=== PATIENT | female | born 2000 | race African-American/Black ===

== ENCOUNTER 2018-08-06 22:11 | Emergency (ER) | payer MEDICAID ==
[2018-08-06 23:05] LABS: ABSOLUTE BASOPHILS # (AUTO) 0.1 10^3/uL (0.0-0.2); ABSOLUTE EOSINOPHILS # (AUTO) 0.6 10^3/uL (0.0-0.6); ABSOLUTE LYMPHOCYTES (AUTO) 2.9 10^3/uL (0.5-4.7); ABSOLUTE MONOCYTES (AUTO) 0.7 10^3/uL (0.1-1.4); ABSOLUTE NEUT (AUTO) 5.4 10^3/uL (1.7-8.2); BASOPHILS % (AUTO) 0.6 % (0-2); HEMATOCRIT 35.8 % (36.0-47.0); HEMOGLOBIN 12.4 g/dL (12.0-15.5); MEAN CORPUSCULAR HEMOGLOBIN 29.3 pg (27.0-33.4); MEAN CORPUSCULAR HGB CONC 34.8 g/dL (32.0-36.0); MEAN CORPUSCULAR VOLUME 84 fl (80-97); MONOCYTES % (AUTO) 7.7 % (3-13); PLATELET COUNT 295 10^3/uL (150-450); RED BLOOD COUNT 4.24 10^6/uL (3.72-5.28); RED CELL DISTRIBUTION WIDTH 14.4 % (11.5-14.0); SEGMENTED NEUTROPHILS % (AUTO) 55.7 % (42-78); TOTAL CELLS COUNTED % (AUTO) 100 %; WHITE BLOOD COUNT 9.6 10^3/uL (4.0-10.5)
[2018-08-06 23:12] LABS: APPEARANCE,URINE SLIGHTLY-CLOUDY; BILIRUBIN,URINE NEGATIVE (NEGATIVE); COLOR,URINE YELLOW; GLUCOSE, URINE NEGATIVE (NEGATIVE); KETONES,URINE NEGATIVE (NEGATIVE); LEUKOCYTE ESTERASE,URINE NEGATIVE (NEGATIVE); NITRITE,URINE NEGATIVE (NEGATIVE); PROTEIN,URINE NEGATIVE (NEGATIVE); URINE SPECIFIC GRAVITY 1.012; UROBILINOGEN,URINE NEGATIVE mg/dL (<2.0)
[2018-08-06 23:27] LABS: ALANINE AMINOTRANSFERASE 13 U/L (5-35); ALBUMIN 4.4 g/dL (3.7-5.6); ALKALINE PHOSPHATASE 81 U/L (50-135); ANION GAP 8 (5-19); ASPARTATE AMINO TRANSFERASE 24 U/L (5-30); BILIRUBIN,DIRECT 0.2 mg/dL (0.0-0.4); BILIRUBIN,TOTAL 0.3 mg/dL (0.2-1.3); BLOOD UREA NITROGEN 7 mg/dL (7-20); CARBON DIOXIDE 24 mmol/L (22-30); CHLORIDE 107 mmol/L (98-107); GLUCOSE 89 mg/dL (75-110); POTASSIUM 3.6 mmol/L (3.6-5.0); SODIUM 139.2 mmol/L (137-145); TOTAL PROTEIN 7.4 g/dL (6.3-8.2)
--- NOTE | 2018-08-07 01:17 | RADIOLOGY REPORT (SQ) ---
US PELVIS HISTORY: Early . Pelvic pain. COMPARISON: None. TECHNIQUE: Grayscale, color Doppler, and spectral Doppler ultrasound images of the pelvis were obtained. FINDINGS: There is an intrauterine gestational sac with a yolk sac and pole visualized. The gestational sac has a normal contour. The crown-rump length measures 1.64 cm, corresponding to 8 weeks 0 days. heart rate is 157 bpm. There is a heterogeneous area adjacent to the gestational sac measuring 1.8 x 1.5 cm likely representing a subchorionic hemorrhage The cervix is closed and measures 3.1 cm in length. The right ovary measures 3.3 x 1.9 x 1.7 cm, and the left ovary measures 4.1 x 2.6 x 2.6 cm and contains a dominant 2.1 x 1.7 cm anechoic cyst. Normal color Doppler blood flow is seen in both ovaries. IMPRESSION: 1. Single live IUP with estimated gestational age 8 weeks 0 days. 2. Small 1.8 cm subchorionic hemorrhage; attention on follow-up is suggested.
--- NOTE | 2018-08-07 01:34 | ER Document Report ---
ED General - General Chief Complaint: Abdominal Pain Stated Complaint: ABDOMINAL PAIN Time Seen by Provider: 08/06/18 22:47 Primary Care Provider: YARON SHANKAR MD [Primary Care Provider] - Follow up as needed Notes: Patient is a 17-year-old at approximately 8 weeks gestation by LMP who presents complaining of 6-8 weeks of lower abdominal cramping, nausea and discomfort to her left shoulder. Abdominal cramping is described as mild, intermittent, unchanged since initial onset. Patient states that symptoms have been relatively constant since onset over the last several weeks. Nothing seems to improve or worsen her symptoms. Is uncertain of whether or not she has had similar symptoms during her previous which did and and a miscarriage. Patient has not yet established. Care for this . She denies vaginal bleeding or vaginal discharge. TRAVEL OUTSIDE OF THE [place] IN LAST 30 DAYS: No - Related Data Allergies/Adverse Reactions: No Known Allergies Allergy (Verified 08/06/18 22:44) Past Medical History - General Information source: Patient - Social History Smoking Status: Never Smoker Frequency of alcohol use: None Drug Abuse: None Lives with: Parents Family History: Reviewed & Not Pertinent Patient has suicidal ideation: No Patient has homicidal ideation: No Renal/ Medical History: Denies: Hx Peritoneal Dialysis Review of Systems - Review of Systems Notes: Constitutional: Negative for fever. HENT: Negative for sore throat. Eyes: Negative for visual changes. Cardiovascular: Negative for chest pain. Respiratory: Negative for shortness of breath. Gastrointestinal: Positive for lower abdominal cramping Genitourinary: Negative for dysuria. Musculoskeletal: Negative for back pain. Skin: Negative for rash. Neurological: Negative for headaches, weakness or numbness. 10 point ROS negative except as marked above and in HPI. Physical Exam - Vital signs Vitals: Pulse 82 08/06/18 22:14 Interpretation: Normal Notes: PHYSICAL EXAMINATION: GENERAL: Well-appearing, well-nourished and in no acute distress. HEAD: Atraumatic, normocephalic. EYES: Pupils equal round and reactive to light, extraocular movements intact, s clera anicteric, conjunctiva are normal. ENT: nares patent, oropharynx clear without exudates. Moist mucous membranes. NECK: Normal range of motion, supple without lymphadenopathy LUNGS: Breath sounds clear to auscultation bilaterally and equal. No wheezes rales or rhonchi. HEART: Regular rate and rhythm without murmurs ABDOMEN: Soft, nontender, normoactive bowel sounds. No guarding, no rebound. No masses appreciated. EXTREMITIES: Normal range of motion, no pitting or edema. No cyanosis. NEUROLOGICAL: No focal neurological deficits. Moves all extremities spontaneously and on command. PSYCH: Normal mood, normal affect. SKIN: Warm, Dry, normal turgor, no rashes or lesions noted. Course - Re-evaluation Re-evalutation: 08/07/18 01:29 Patient is currently and presenting with lower abdominal pain. No va ginal bleeding or discharge. Ultrasound does reveal a week intrauterine with associated subchorionic hemorrhage. Patient denies any dysuria and urinalysis is not consistent with an acute urinary tract infection. The patient does not have any focal right lower quadrant tenderness, rebound or guarding to suggest acute appendicitis. No right upper quadrant tenderness to suggest cholestasis of or an acute cholecystitis. Patient has tolerated oral intake here in the emergency department without difficulty. Vitals are within normal limits. At this time will discharge with return precautions and follow-up recommendations. Verbal discharge instructions given a the bedside and opportunity for questions given. Medication warnings reviewed. Patient is in agreement with this plan and has verbalized understanding of return precautions and the need for primary care follow-up in the next 24-72 hours. - Vital Signs Vital signs: Temp Pulse Resp BP Pulse Ox 98.8 F 82 20 126/68 H 100 08/06/18 22:22 08/06/18 22:22 08/06/18 22:22 08/06/18 22:22 08/06/18 22:22 - Laboratory Result Diagrams: 08/06/18 22:41 08/06/18 22:41 Laboratory results interpreted by me: 08/06/18 08/06/18 08/06/18 22:41 22:41 22:41 Hct 35.8 L RDW 14.4 H Beta HCG, Quant 325818.00 H Urine HCG, Qual POSITIVE H - Diagnostic Test Radiology reviewed: Reports reviewed - EKG Interpretation by Me Additional EKG results interpreted by me: 08/07/18 01:35 Sinus rhythm, rate 67. No ST elevations or depressions. QTC is 376. Discharge - Discharge Clinical Impression: First trimester , related abdominal pain of lower quadrant, antepartum Condition: Good Disposition: HOME, SELF-CARE Additional Instructions: You were seen for abdominal pain during . Your ultrasound and labs are normal today. The exact cause your pain is uncertain but is likely related to your developing baby. Please follow-up with your MASTIC FLOOR LAYER in the next 24-48 hours. Return to the emergency department immediately if you have worsening of your pain, have persistent vomiting, develop a fever of greater than 100.4F, begin to have vaginal bleeding, or any other symptoms that are worrisome to you. Referrals: YARON SHANKAR MD [Primary Care Provider] - Follow up as needed LATONYA ASKEW MD [ACTIVE STAFF] - Follow up as needed
[2018-08-07 02:10] VITALS: BP 113/62
--- NOTE | 2018-08-07 22:54 | EKG REPORT ---
SEVERITY:- NORMAL ECG - SINUS RHYTHM : Confirmed by: Sekou Sweeney 07-Aug-2018 22:53:38
== END 2018-08-07 02:10 | disposition home or self-care (01) ==
LOC: ER 22:11
DX: O26.891 Other specified pregnancy related conditions, first trimester (principal); R10.30 Lower abdominal pain, unspecified; R11.0 Nausea; O20.8 Other hemorrhage in early pregnancy; Z3A.00 Weeks of gestation of pregnancy not specified; Z87.59 Personal history of other complications of pregnancy, childbirth and the puerperium
CPT/HCPCS: 36415; 76817; 80053; 81001; 81025; 84702; 85025; 93005; 93010; 99284

== ENCOUNTER 2020-04-04 10:03 | Emergency (ER) | payer MEDICAID ==
[2020-04-04 10:10] VITALS: BP 111/67
[2020-04-04] MEDS ORDERED: NAPROXEN 250 MG TABLET PO ONE (10:24)
--- NOTE | 2020-04-04 10:35 | ER Document Report ---
HPI - HPI Patient complains to provider of: wrist pain Time Seen by Provider: 04/04/20 10:20 Pain Level: 4 Notes: 19-year-old female to the emergency department with complaints of right wrist pain that is been ongoing for some time but significantly worse in the past 2 days. 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 She is using a "Wizard knife". She states she flex her wrist from about 11 PM to 8 AM cutting the meat. She states it hurts in the back of the wrist and along the thumb. She denies any elier injury. She is right-hand dominant. She denies any numbness and tingling. She has been taking Tylenol and BC powders without a lot of relief. - ROS Systems Reviewed and Negative: Yes All other systems reviewed and negative - CONSTITUTIONAL Constitutional: DENIES: Fever, Chills - EENT EENT: DENIES: Sore Throat, Ear Pain, Congestion - NEURO Neurology: DENIES: Headache - CARDIOVASCULAR Cardiovascular: DENIES: Chest pain - RESPIRATORY Respiratory: DENIES: Trouble Breathing, Coughing - GASTROINTESTINAL Gastrointestinal: DENIES: Abdominal Pain, Nausea, Patient vomiting, Diarrhea - MUSCULOSKELETAL Musculoskeletal: REPORTS: Extremity pain Notes: Right wrist pain - DERM Skin Color: Normal Skin Problems: None Past Medical History - General Information source: Patient - Social History Smoking Status: Never Smoker Chew tobacco use (# tins/day): No Frequency of alcohol use: Occasional Drug Abuse: Marijuana Family History: Reviewed & Not Pertinent Patient has homicidal ideation: No Renal/ Medical History: Denies: Hx Peritoneal Dialysis Vertical Provider Document - CONSTITUTIONAL Agree With Documented VS: Yes Exam Limitations: No Limitations General Appearance: WD/WN, No Apparent Distress - INFECTION CONTROL TRAVEL OUTSIDE OF THE [place] IN LAST 30 DAYS: No - HEENT HEENT: Atraumatic, Normocephalic, PERRLA - NECK Neck: Normal Inspection, Supple - RESPIRATORY Respiratory: Breath Sounds Normal, No Respiratory Distress. negative: Rales, Rhonchi, Wheezing - CARDIOVASCULAR Cardiovascular: Regular Rate, Regular Rhythm, No Murmur - GI/ABDOMEN Gastrointestinal: Abdomen Soft, Abdomen Non-Tender, No Organomegaly - MUSCULOSKELETAL/EXTREMETIES Notes: There is tenderness to palpation over the dorsal aspect of the right wrist and up onto the dorsal aspect of the thumb. Patient also reports a little bit of tenderness to palpation over the thenar eminence. She has a positive Thao test. She has negative Phalen's and Tinel's. Mainly however her pain is mostly elicited with extension of the wrist. She has about a 4 out of 5 and right hand mobile designer due to pain. Radial pulses are intact and equal. There is no erythema or edema. There is no warmth of the skin. There is no streaking redness. Cap refill is less than 2 seconds. All fingers with 5 out of 5 strength against resistance in testing of both flexor tendons as well as extensor tendons. - NEURO Level of Consciousness: Awake, Alert, Appropriate Motor/Sensory: No Motor Deficit, No Sensory Deficit - DERM Integumentary: Warm, Dry, No Rash Course - Re-evaluation Re-evalutation: 04/04/20 11:09 Impression: Right wrist pain. This is likely a tendinitis from overuse. X-ray is negative for any acute bony injury. Will place in a Velcro wrist splint and have her follow-up with orthopedist. Encouraged rest and ice for the next several days. Will send home with NSAIDs as well as a Medrol Dosepak. Patient agrees with the plan. Encouraged to return if any worsening symptoms. - Vital Signs Vital signs: Temp Pulse Resp BP Pulse Ox 98.2 F 69 16 111/67 100 04/04/20 10:17 04/04/20 10:09 04/04/20 10:09 04/04/20 10:09 04/04/20 10:09 Discharge - Discharge Clinical Impression: Right wrist pain, Tendonitis, Overuse injury Condition: Stable Disposition: HOME, SELF-CARE Instructions: Overuse Syndrome ([facility]), Tendonitis ([facility]) Additional Instructions: Wear splint without fail. Rest and ice the wrist. Take medicines as prescribed. Follow up with orthopedist. REturn if worsening symptoms. Prescriptions: Methylprednisolone [Medrol Dosepack (4 mg/Tab) 21 Tab/Dosepak] 4 mg PO ASDIR PRN #21 tab.ds.pk PRN Reason: Naproxen [Naprosyn 250 mg Tablet] 500 mg PO BID #30 tablet Forms: Return to Work Referrals: YARON SHANKAR MD [Primary Care Provider] - Follow up as needed SANDER DELUNA JR, DO [ACTIVE PROVISIONAL STAFF] - Follow up in 1 week (for orthopedic follow up)
--- NOTE | 2020-04-04 11:01 | RADIOLOGY REPORT (SQ) ---
EXAM DESCRIPTION: WRIST RIGHT 3 VIEWS IMAGES COMPLETED DATE/TIME: 04/04/2020 10:52 am REASON FOR STUDY: wrist pain COMPARISON: None. NUMBER OF VIEWS: Three views. TECHNIQUE: AP, lateral, and oblique radiographic images acquired of the right wrist. LIMITATIONS: None. FINDINGS: MINERALIZATION: Normal. BONES: No acute fracture or dislocation. No worrisome bone lesions. Normal alignment. SOFT TISSUES: No soft tissue swelling. No foreign body. OTHER: No other significant finding. IMPRESSION: NEGATIVE STUDY OF THE RIGHT WRIST. NO RADIOGRAPHIC EVIDENCE OF ACUTE INJURY. TECHNICAL DOCUMENTATION: JOB ID: [id number] 2010 [employer]- All Rights Reserved Reading location - IP/workstation name: [email or web address]
== END 2020-04-04 11:23 | disposition home or self-care (01) ==
LOC: ER 10:03
DX: M77.8 Other enthesopathies, not elsewhere classified (principal); M70.831 Other soft tissue disorders related to use, overuse and pressure, right forearm; M25.531 Pain in right wrist; Y93.89 Activity, other specified
CPT/HCPCS: 99283; 73110; J3490

== ENCOUNTER 2020-06-10 17:02 | Emergency (ER) | payer OTHER, MEDICAID ==
[2020-06-10 17:21] VITALS: BP 93/43
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
[2020-06-10] MEDS ORDERED: TETRACAINE HCL 0.5% OPH SOLN 4 ML OD PRN (17:52)
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
[2020-06-10] MEDS ORDERED: TETRACAINE HCL 0.5% OPH SOLN 4 ML OS ONE (23:15)
[2020-06-10] MEDS ORDERED: FENTANYL CITRATE INJ/PF 100 MCG/2 ML AMPUL IV ONE (23:15)
[2020-06-10] MEDS ORDERED: ONDANSETRON HCL INJ/PF 4 MG/2 ML SDV IV ONE (23:15)
[2020-06-10] MEDS ORDERED: HYDROCODONE/ACETAMINOPHEN 5-325 MG TABLET PO ONE (23:52)
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
== END 2020-06-11 02:01 | disposition home or self-care (01) ==
LOC: ER 17:02
DX: H57.12 Ocular pain, left eye (principal); R51.9 Headache, unspecified; M54.2 Cervicalgia; R60.0 Localized edema; V49.50XA Passenger injured in collision with unspecified motor vehicles in traffic accident, initial encounter
CPT/HCPCS: 99284; 71046; 70450; 70480; 70486; 72125; J3490